=== PATIENT | female | born 1975 | race Caucasian/White ===

== ENCOUNTER 2018-11-30 16:50 | Emergency (ER) | payer MEDICAID ==
[~2018-11-30] VITALS: Ht 167.6 cm; Wt 59.9 kg
[2018-11-30 16:59] VITALS: BP_SYST 121
--- NOTE | 2018-11-30 17:06 | NUR ---
Patient to ER bed 4 to gown for evaluation. Side rails up. Report given to Khushbu BRIDGES.
--- NOTE | 2018-11-30 17:12 | NUR ---
ER Dr. Lopez at bedside examining patient.
--- NOTE | 2018-11-30 17:19 | NUR ---
PT AAOx4 ambulated into ED c/o increased vaginal bleeding since yesterday with new onset of clots in pads. Also c/o intermittent biltearal pelvic cramping, but pt took 800mg Motrin with relief. Denies N/V/D. No other injuries/complaints per pt/noted. Will continue to monitor.
--- NOTE | 2018-11-30 17:36 | NUR ---
Note eladia in [facility] - 11/30/18 at 1737 by JIMMY Placed in room 03 . Placed on manager monitoring, blood pressure machine and pulse oximeter. To gown for exam. Side rails up. Report given to Khushbu BRIDGES.
--- NOTE | 2018-11-30 17:38 | NUR ---
HCG positive. Dr. Lopez made aware.
[2018-11-30 17:41] LABS: BASOPHILS % (AUTO) 0.5 % (0.0-2.0); EOSINOPHILS # (AUTO) 0.2 K/uL (0.0-0.4); EOSINOPHILS % (AUTO) 2.2 % (0.0-4.0); HEMATOCRIT 40.6 % (36-48); HEMOGLOBIN 13.7 g/dL (12.0-16.0); LYMPHOCYTES # (AUTO) 1.5 K/uL (1.0-5.5); LYMPHOCYTES % (AUTO) 16.1 % (20.5-51.5); MEAN CORPUSCULAR HEMOGLOBIN 27 pg (27-31); MEAN CORPUSCULAR HGB CONC 34 % (32-36); MEAN CORPUSCULAR VOLUME 79 fL (79.0-98.0); MONOCYTES # (AUTO) 0.8 K/uL (0.0-1.0); MONOCYTES % (AUTO) 8.3 % (1.7-9.3); NEUTROPHILS # (AUTO) 6.7 K/uL (1.8-7.7); NEUTROPHILS % (AUTO) 72.9 % (40.0-70.0); PLATELET COUNT (AUTO) 231 K/uL (130-430); RED BLOOD CELL COUNT(AUTO) 5.11 MIL/uL (4.2-6.2); RED CELL DISTRIBUTION WIDTH 14.8 % (9.0-15.0); WHITE BLOOD COUNT (AUTO) 9.2 K/uL (4.8-10.8)
[2018-11-30 17:44] LABS: CALCIUM 9.3 mg/dL (8.4-11.0); CREATININE 0.76 mg/dL (0.55-1.30); POTASSIUM 3.6 mmol/L (3.5-5.1)
--- NOTE | 2018-11-30 17:48 | NUR ---
PT taken to ultrasound via wheelchair in stable condition
[2018-11-30 17:49] LABS: ALBUMIN 3.7 g/dL (3.4-4.8); TOTAL BILIRUBIN 0.4 mg/dL (0.0-1.0)
--- NOTE | 2018-11-30 18:44 | NUR ---
Note undone in EDM - 11/30/18 at 1845 by [email or web address] Patient given written and verbal discharge instructions and verbalizes understanding. ER MD Lopez discussed with patient the results and treatment provided. Patient in stable condition. ID arm band removed. No Rx given. Patient educated on pain management and to follow up with PMD. Pain Scale 0. Opportunity for questions provided and answered. Medication side effect fact sheet provided.
[2018-11-30 18:45] VITALS: BP_SYST 117
== END 2018-11-30 18:45 | disposition home or self-care (01) ==
LOC: SED 16:50
DX: O20.0 Threatened abortion (principal); Z3A.01 Less than 8 weeks gestation of pregnancy
CPT/HCPCS: 36415; 76801; 80053; 81025; 84702-TC; 85025; 86886; 86900; 86901; 99284